=== PATIENT | female | born 1990 | race Caucasian/White ===

== ENCOUNTER 2018-03-08 05:20 | Inpatient (IN) | payer OTHER ==
[~2018-03-08] VITALS: Ht 162.6 cm; Wt 102.3 kg
[~2018-03-08 05:20] MED LIST: IBUP-1222 PO; OXYC-302 PO; PREN1TAB27 PO
[2018-03-08] MEDS ORDERED: NEWBORN KIT ONE (05:30)
[2018-03-08] MEDS ORDERED: LIDOCAINE/PF 1%, 30ML ONE (05:31)
[2018-03-08] MEDS ORDERED: D5%-LACTATED RINGERS 1,000 ML IV SCH (05:35)
[2018-03-08] MEDS ORDERED: FENTANYL/BUPIV./NS/PF 250 ML EPIDCONT ONE ×2 (05:35→06:30)
[2018-03-08] MEDS ORDERED: OXYTOCIN 30U/ 0.9% NaCL 500ML 500 ML IV ONE (05:35)
[2018-03-08 05:40] VITALS: BP 138/87
[2018-03-08] MEDS: LACTATED RINGERS 1,000 ML IV SCH ×5 (05:49→23:53)
[2018-03-08] MEDS ORDERED: ALUMINUM/MAG/SIMETHICONE 30 ML UDC PO PRN (06:00)
[2018-03-08] MEDS ORDERED: TERBUTALINE 1 MG/ML, 1ML SQ PRN (06:00)
[2018-03-08] MEDS ORDERED: ONDANSETRON 2MG/ML, 2ML IVPush PRN ×3 (06:00→22:30)
[2018-03-08] MEDS ORDERED: SODIUM CITRATE/CITRIC ACID 30 ML UDC PO PRN (06:00)
[2018-03-08] MEDS ORDERED: METOCLOPRAMIDE 5 MG/ML, 2ML IVPush PRN (06:00)
[2018-03-08] MEDS ORDERED: TERBUTALINE 1 MG/ML, 1ML IVPush PRN ×2 (06:00)
[2018-03-08] MEDS ORDERED: CALCIUM CARBONATE 500 MG TAB.CHEW PO PRN (06:00)
[2018-03-08] MEDS ORDERED: FENTANYL PF 100 MCG/2ML IV PRN ×2 (06:00→22:30)
[2018-03-08] MEDS ORDERED: FENTANYL PF 100 MCG/2ML IVPush PRN (06:00)
[2018-03-08 06:08] LABS: BASOPHILS # (AUTO) 0.03 x10^3/uL (0-0.1); BASOPHILS % (AUTO) 0 % (0-1); EOSINOPHILS # (AUTO) 0.05 x10^3/uL (0-0.4); EOSINOPHILS % (AUTO) 1 % (1-7); LYMPHOCYTES # (AUTO) 2.12 x10^3/uL (1-3.4); LYMPHOCYTES % (AUTO) 23 % (22-44); MD NO; MEAN CORPUSCULAR HEMOGLOBIN 32.1 pg (27.0-34.8); MEAN CORPUSCULAR HGB CONC 34.8 g/dL (32.4-35.8); MEAN CORPUSCULAR VOLUME 92.3 fL (80-100); MEAN PLATELET VOLUME 8.1 fL (7.4-10.4); MONOCYTES # (AUTO) 0.57 x10^3/uL (0.2-0.8); MONOCYTES % (AUTO) 6 % (2-9); NEUTROPHILS # (AUTO) 6.34 x10^3/uL (1.8-6.8); NEUTROPHILS % (AUTO) 70 % (42-75); PLATELET COUNT 231 x10^3/uL (130-400); RED BLOOD COUNT 4.12 x10^6/uL (3.82-5.3); RED CELL DISTRIBUTION WIDTH 14.2 % (9.6-15.2)
[2018-03-08 06:13] VITALS: BP 138/87
[2018-03-08] MEDS ORDERED: FENTANYL PF 100 MCG/2ML ONE ×5 (06:30→22:31)
[2018-03-08] MEDS ORDERED: BUPIVACAINE 0.25% ONE ×3 (06:30→15:35)
[2018-03-08] MEDS ORDERED: LIDOCAINE/PF 1.5%-EPI 1:200K, 30ML ONE (06:30)
[2018-03-08] MEDS ORDERED: FENTANYL/BUPIV./NS/PF 250 ML EPIDCONT SCH (06:57)
[2018-03-08] MEDS ORDERED: LACTATED RINGERS 1,000 ML IVBOLUS PRN (07:00)
[2018-03-08] MEDS ORDERED: EPHEDRINE 50 MG/ML, 1ML IVPush PRN ×2 (07:00→22:30)
[2018-03-08] MEDS ORDERED: FENTANYL PF 500 MCG, BUPIVACAINE/PF 0.5%, 30ML 62.5 ML in SODIUM CHLORIDE 0.9% 177.5 ML EPIDCONT SCH (07:30)
[2018-03-08] MEDS ORDERED: OXYTOCIN 30U/ 0.9% NaCL 500ML 500 ML IV PRN (08:44)
[2018-03-08] MEDS ORDERED: ONDANSETRON 2MG/ML, 2ML ONE ×2 (18:29→22:30)
[2018-03-08] MEDS ORDERED: BUPIVACAINE/PF-EPI 0.25% 1:200K ONE (18:52)
[2018-03-08] MEDS ORDERED: METOCLOPRAMIDE 5 MG/ML, 2ML ONE ×2 (22:15→22:37)
[2018-03-08] MEDS ORDERED: SODIUM CITRATE/CITRIC ACID 30 ML UDC ONE ×2 (22:15→22:37)
[2018-03-08] MEDS ORDERED: LACTATED RINGERS 1,000 ML IV SCH ×2 (22:16→23:53)
[2018-03-08] MEDS ORDERED: OXYTOCIN 30U/ 0.9% NaCL 500ML 500 ML IV SCH ×2 (22:16→23:53)
[2018-03-08] MEDS ORDERED: ALBUTEROL SULFATE 2.5 MG/3 ML NPPB PRN (22:30)
[2018-03-08] MEDS ORDERED: CEFAZOLIN 1,000 MG ONE (22:30)
[2018-03-08] MEDS ORDERED: MEPERIDINE/PF 25MG/0.5ML IVPush PRN (22:30)
[2018-03-08] MEDS ORDERED: SODIUM CITRATE/CITRIC ACID 30 ML UDC PO ONE (22:30)
[2018-03-08] MEDS ORDERED: MIDAZOLAM 1 MG/ML, 2ML IV PRN (22:30)
[2018-03-08] MEDS ORDERED: KETOROLAC 30 MG/1 ML ONE (22:30)
[2018-03-08] MEDS ORDERED: EPHEDRINE 50 MG/ML, 1ML ONE (22:30)
[2018-03-08] MEDS ORDERED: HYDROmorphone 1 MG/ML, 1ML IV PRN (22:30)
[2018-03-08] MEDS ORDERED: LABETALOL 5MG/ML, 20ML IV PRN (22:30)
[2018-03-08] MEDS ORDERED: PROMETHAZINE 25 MG/ML, 1ML IV PRN (22:30)
[2018-03-08] MEDS ORDERED: hydrALAzine 20 MG/ML, 1ML IV PRN (22:30)
[2018-03-08] MEDS ORDERED: PROPOFOL 10 MG/ML, 20ML ONE (22:30)
[2018-03-08] MEDS ORDERED: OXYcodone 5 MG/5 ML ORAL.SOL UDC PO PRN (22:30)
[2018-03-08] MEDS ORDERED: HYDROcodone/APAP 7.5-325MG/15ML UDC PO PRN (22:30)
[2018-03-08] MEDS ORDERED: OXYTOCIN 10 UNITS/ML, 1ML ONE ×2 (22:30→22:37)
[2018-03-08] MEDS ORDERED: SUCCINYLCHOLINE 20 MG/ML, 10ML ONE (22:30)
[2018-03-08] MEDS ORDERED: PHENYLEPHRINE 10 MG/ML ONE (22:30)
[2018-03-08] MEDS ORDERED: DEXAMETHASONE 4 MG/ML, 1ML ONE (22:30)
[2018-03-08] MEDS ORDERED: METOCLOPRAMIDE 5 MG/ML, 2ML IV ONE (22:30)
[2018-03-08] MEDS ORDERED: LIDOCAINE-MPF 2% ,5ML ONE (22:37)
[2018-03-08] MEDS ORDERED: HYDROmorphone 2 MG/ML, 1ML ONE (23:17)
[2018-03-08] MEDS ORDERED: morphine SULFATE/PF 1 MG/ML, 10ML ONE (23:34)
[2018-03-09] MEDS ORDERED: MISOPROSTOL 200 MCG TABLET PR PRN
[2018-03-09] MEDS ORDERED: SIMETHICONE 80 MG CHEW TAB PO PRN
[2018-03-09] MEDS ORDERED: OXYcodone IR 5MG TABLET PO PRN
[2018-03-09] MEDS ORDERED: ONDANSETRON 2MG/ML, 2ML IV PRN
[2018-03-09] MEDS ORDERED: CARBOPROST TROMETHAMINE 250 MCG/ML, 1ML IM PRN
[2018-03-09] MEDS ORDERED: MEPERIDINE/PF 50 MG/ML IM PRN
[2018-03-09] MEDS ORDERED: METHYLERGONOVINE 0.2 MG/ML IM PRN
[2018-03-09 01:25] VITALS: BP 112/68
[2018-03-09] MEDS ORDERED: NALOXONE 0.4 MG/ML, 1ML IV PRN ×2 (04:00→04:30)
[2018-03-09] MEDS ORDERED: DIPHENHYDRAMINE 50 MG/ML, 1ML IV PRN (04:00)
[2018-03-09] MEDS ORDERED: NO SEDATIVES, TRANQUILIZERS OR ANTIEMETICS XX SCH (04:00)
[2018-03-09] MEDS ORDERED: HYDROmorphone 1 MG/ML, 1ML IVPush PRN (04:00)
[2018-03-09] MEDS ORDERED: EPHEDRINE 50 MG/ML, 1ML IVPush PRN (04:00)
[2018-03-09] MEDS ORDERED: ONDANSETRON 2MG/ML, 2ML IVPush PRN (04:00)
[2018-03-09] MEDS: KETOROLAC 30 MG/1 ML IV SCH ×3 (05:13→17:00)
[2018-03-09 06:00] VITALS: BP 115/70
[2018-03-09] MEDS: LACTATED RINGERS 1,000 ML IV SCH (07:53)
[2018-03-09 08:00] VITALS: BP 105/68
[2018-03-09 08:19] LABS: MEAN CORPUSCULAR HEMOGLOBIN 31.7 pg (27.0-34.8); MEAN CORPUSCULAR HGB CONC 34.2 g/dL (32.4-35.8); MEAN CORPUSCULAR VOLUME 92.7 fL (80-100); MEAN PLATELET VOLUME 8.2 fL (7.4-10.4); PLATELET COUNT 205 x10^3/uL (130-400); RED BLOOD COUNT 3.22 x10^6/uL (3.82-5.3); RED CELL DISTRIBUTION WIDTH 14.1 % (9.6-15.2)
[2018-03-09 08:41] LABS: BASOPHILS # (AUTO) 0.01 x10^3/uL (0-0.1); BASOPHILS % (AUTO) 0 % (0-1); EOSINOPHILS # (AUTO) 0.01 x10^3/uL (0-0.4); EOSINOPHILS % (AUTO) 0 % (1-7); LYMPHOCYTES # (AUTO) 1.49 x10^3/uL (1-3.4); LYMPHOCYTES % (AUTO) 9 % (22-44); MD SCAN; MONOCYTES # (AUTO) 0.43 x10^3/uL (0.2-0.8); MONOCYTES % (AUTO) 3 % (2-9); NEUTROPHILS # (AUTO) 14.01 x10^3/uL (1.8-6.8); NEUTROPHILS % (AUTO) 88 % (42-75)
[2018-03-09] MEDS: PRENATAL VIT/IRON/FA 1 EACH TABLET PO SCH (09:00)
[2018-03-09 11:40] VITALS: BP 129/76
[2018-03-09] MEDS: DOCUSATE 100 MG CAPSULE PO PRN ×2 (11:51→19:50)
[2018-03-09 16:10] VITALS: BP 111/71
[2018-03-09] MEDS: IBUPROFEN 800 MG TABLET PO PRN (17:53)
[2018-03-09 20:00] VITALS: BP 100/68
[2018-03-10] MEDS: OXYcodone IR 5MG TABLET PO PRN ×3 (01:54→14:07)
[2018-03-10] MEDS: IBUPROFEN 800 MG TABLET PO PRN ×2 (03:14→14:07)
[2018-03-10 08:07] VITALS: BP 95/63
[2018-03-10 08:10] LABS: BASOPHILS # (AUTO) 0.01 x10^3/uL (0-0.1); BASOPHILS % (AUTO) 0 % (0-1); EOSINOPHILS % (AUTO) 2 % (1-7); LYMPHOCYTES # (AUTO) 3.31 x10^3/uL (1-3.4); LYMPHOCYTES % (AUTO) 26 % (22-44); MD NO; MEAN CORPUSCULAR HEMOGLOBIN 31.9 pg (27.0-34.8); MEAN CORPUSCULAR HGB CONC 33.6 g/dL (32.4-35.8); MEAN CORPUSCULAR VOLUME 94.8 fL (80-100); MONOCYTES # (AUTO) 0.49 x10^3/uL (0.2-0.8); MONOCYTES % (AUTO) 4 % (2-9); NEUTROPHILS # (AUTO) 8.61 x10^3/uL (1.8-6.8); NEUTROPHILS % (AUTO) 68 % (42-75); PLATELET COUNT 228 x10^3/uL (130-400); RED CELL DISTRIBUTION WIDTH 14.5 % (9.6-15.2)
[2018-03-10] MEDS: DOCUSATE 100 MG CAPSULE PO PRN (09:31)
[2018-03-10] MEDS: PRENATAL VIT/IRON/FA 1 EACH TABLET PO SCH (09:31)
[2018-03-10] MEDS ORDERED: OXYC-302 PO (11:25)
== END 2018-03-10 14:18 | disposition home or self-care (01) | DRG 788 ==
LOC: LDOP 05:20 → LDIP 05:37 → 2NW 03-09 01:21
PROVIDERS: ADMIT Obstetrics & Gynecology Gynecology; ATTEND Obstetrics & Gynecology Gynecology
PROC: 10D00Z1 Extraction of Products of Conception, Low, Open Approach (ICD-10-PCS; principal; 2018-03-08)
DX: O34.211 Maternal care for low transverse scar from previous cesarean delivery (principal); O62.1 Secondary uterine inertia; O66.41 Failed attempted vaginal birth after previous cesarean delivery; O76 Abnormality in fetal heart rate and rhythm complicating labor and delivery; Z37.0 Single live birth; Z3A.40 40 weeks gestation of pregnancy; O99.214 Obesity complicating childbirth; E66.9 Obesity, unspecified
CPT/HCPCS: 36415; J7121; 59025; 85025; 86850; 86900; 99201; 99285; G0378; J0690; J1100; J1170; J1885; J2274; J2405; J2704; J3010; J3490; G0463; J0330; J2370; J2590; J2765; J7120